=== PATIENT | male | born 1960 | race Caucasian/White ===

== ENCOUNTER 2016-05-12 18:28 | Emergency (ER) | payer BC ==
[2016-05-12 18:48] LABS: BASO % 0.5 % (0.0-1.0); EOS # 0.2 K/mm3 (0.0-0.50); EOS % 2.4 % (0.0-3.0); LARGE UNSTAINED CELL # 0.2 K/mm3 (0.0-0.4); LARGE UNSTAINED CELL % 2.1 % (0.0-4.0); LYMPH # 3.6 K/mm3 (1.5-4.5); LYMPH % 35.4 % (24.0-44.0); MEAN CORPUSCULAR HEMOGLOBIN 27.9 pg (27.0-33.0); MEAN CORPUSCULAR HGB CONC 32.3 g/dl (32.0-36.5); MEAN CORPUSCULAR VOLUME 86.3 fl (80.0-96.0); MONO # 0.6 K/mm3 (0.0-0.8); NEUTROPHILS # 5.2 K/mm3 (1.8-7.7); NEUTROPHILS % 53.6 % (36.0-66.0); PLATELET COUNT, AUTOMATED 250 k/mm3 (150-450); RED CELL DISTRIBUTION WIDTH 12.1 % (11.5-14.5); WHITE BLOOD COUNT 9.7 K/mm3 (4.0-10.0)
[2016-05-12] MEDS ORDERED: ASPIRIN 81 MG CHEW TABLET As Ordered ONE (18:57)
[2016-05-12] MEDS ORDERED: GI COCKTAIL 50ML BTL(HYOSCYAMINE/MAALOX/LIDOCAINE VISCOUS)(1:3:1) As Ordered ONE (18:57)
--- NOTE | 2016-05-12 19:04 | REP ---
Clinical: Chest pain . Comparison: 08/22/2003 . Findings: The mediastinum and cardiac silhouette are stable and within normal limits for portable technique. The lung contreras are clear without acute consolidation, effusion, or pneumothorax. Skeletal structures are intact. Impression: Normal portable chest x-ray Signed by Antoine Vasques MD 05/12/2016 06:56 P
[2016-05-12 19:13] LABS: ALBUMIN 4.2 GM/DL (3.2-5.2); ALBUMIN/GLOBULIN RATIO 1.27 (1.00-1.93); ALKALINE PHOSPHATASE 100 U/L (45-117); ALT/SGPT 33 U/L (12-78); ANION GAP 8 MEQ/L (8-16); AST/SGOT 18 U/L (15-37); BILIRUBIN,DIRECT 0.1 MG/DL (0.0-0.2); BILIRUBIN,TOTAL 0.4 MG/DL (0.2-1.0); BLOOD UREA NITROGEN 18 MG/DL (7-18); CALCIUM LEVEL 9.4 MG/DL (8.5-10.1); CARBON DIOXIDE LEVEL 31 MEQ/L (21-32); CHLORIDE LEVEL 103 MEQ/L (98-107); CREATININE FOR GFR 1.28 MG/DL (0.70-1.30); GLOMERULAR FILTRATION RATE > 60.0 (>56); GLUCOSE, FASTING 110 MG/DL (70-105); POTASSIUM SERUM 3.8 MEQ/L (3.5-5.1); SODIUM LEVEL 142 MEQ/L (136-145); TOTAL PROTEIN 7.5 GM/DL (6.4-8.2)
[2016-05-12] MEDS ORDERED: FAMOTIDINE/NS 20 MG/50 ML BAG (S0028) As Ordered ONE (20:02)
[2016-05-12] MEDS ORDERED: MORPHINE 2 MG/ML 1ML SYRINGE As Ordered ONE (20:02)
[2016-05-12] MEDS ORDERED: KETOROLAC 30 MG/ML VIAL (J1885) As Ordered ONE (20:41)
--- NOTE | 2016-05-13 01:59 | EDDOCDS ---
Physician Documentation [facility] Name: Hussein Garcia Age: 55 yrs Sex: Male : 1960 Arrival Date: 05/12/2016 Time: 18:28 Bed D1 Private MD: Disposition: 05/12/16 23:18 Discharged to Home/Self Care. Impression: Chest pain, unspecified, Abdominal and pelvic pain. - Condition is Stable. - Discharge Instructions: Abdominal Pain, Adult, Nonspecific Chest Pain. - Prescriptions for Naprosyn 500 mg Oral Tablet - take 1 tablet by ORAL route 2 times per day take with food; 30 tablet. Aspirin 81 mg - take 1 tablet by ORAL route once daily; 90 tablet. Zofran 4 mg Oral Tablet - take 1 tablet by ORAL route 4 times per day As needed; 10 tablet. - Medication Reconciliation, Local Pharmacy Hours form. - Follow up: Phillip Wilkerson MD; When: Call to arrange an appointment; Reason: Further diagnostic work-up, Continuance of care. Follow up: Hakan Neff; When: Call to arrange an appointment; Reason: Further diagnostic work-up, Continuance of care. - Problem is an acute exacerbation. - Symptoms have improved. Historical: - Allergies: no known allergies; - Home Meds: 1. simvastatin 20 mg Oral tab 1 tab once daily 2. unknown for reflux - PMHx: Hypercholesterolemia; GERD; - PSHx: Hernia repair; H pylori; - Social history: Smoking status: Patient states was never smoker of tobacco. No barriers to communication noted, The patient speaks fluent Swedish, Speaks appropriately for age. - Family history: Not pertinent. - : The pt / caregiver states he / she is not on anticoagulants. Home medication list is obtained from the patient. - Exposure Risk Screening:: None identified. Vital Signs: 05/12 18:30 BP 164 / 76; Pulse 64; Resp 18; Temp 96.7(O); Pulse Ox 100% on R/A; Weight 115.67 kg / lr2 255.01 lbs (R); Height 5 ft. 10 in. (177.80 cm) (R); Pain 6/10; 18:45 BP 141 / 76 (auto/); kmg1 18:45 Pulse 60 MON; Pulse Ox 97% ; kmg1 19:00 Pulse 60 MON; Pulse Ox 93% ; kmg1 19:15 Pulse 62 MON; Pulse Ox 94% ; kmg1 19:30 Pulse 64 MON; Pulse Ox 90% ; kmg1 19:45 Pulse 56 MON; Pulse Ox 93% ; kmg1 20:40 Pulse 52 MON; Pulse Ox 95% ; cz 20:41 BP 125 / 70 (auto/); cz 20:55 Pulse 48 MON; Pulse Ox 95% ; cz 20:56 BP 114 / 63 (auto/); cz 21:10 Pulse 48 MON; Pulse Ox 93% ; cz 21:11 BP 111 / 63 (auto/); cz 21:25 Pulse 50 MON; Pulse Ox 93% ; cz 21:26 BP 114 / 67 (auto/); cz 21:40 Pulse 54 MON; Pulse Ox 92% ; cz 21:41 BP 115 / 67 (auto/); cz 21:55 Pulse 54 MON; Pulse Ox 93% ; cz 21:56 BP 129 / 67 (auto/); cz 22:10 Pulse 50 MON; Pulse Ox 95% ; cz 22:11 BP 120 / 65 (auto/); cz 22:25 Pulse 48 MON; Pulse Ox 94% ; cz 22:26 BP 125 / 65 (auto/); cz 22:40 Pulse 50 MON; Pulse Ox 93% ; cz 22:41 BP 130 / 68 (auto/); cz 22:55 Pulse 50 MON; Pulse Ox 93% ; cz 22:56 BP 116 / 68 (auto/); cz 23:10 Pulse 48 MON; Pulse Ox 91% ; cz 23:11 BP 117 / 73 (auto/); cz 23:31 BP 113 / 73; Pulse 51; Resp 16; Temp 96(O); cz 18:30 Body Mass Index 36.59 (115.67 kg, 177.80 cm) lr2 MDM: 18:37 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 br1 18:37 IV Saline Lock ordered. br1 18:37 Rhythm Strip to chart ordered. br1 18:37 Undress patient appropriately for examination ordered. br1 18:38 Basic Metabolic Profile Ordered. EDMS 18:38 CBC with Diff Ordered. EDMS 18:38 Cardiac Injury Profile Ordered. EDMS 18:38 Troponin Ordered. EDMS 18:38 ECG WITH READING ER PHYS+CARDIAG ordered. EDMS 18:38 ECG WITH READING ER PHYS+CARDIAG ordered. EDMS 18:46 GI Cocktail - (Alum-Mag Hydroxide-Simeth 30 ml, Lidocaine 10 ml, Hyoscyamine 10 ml) PO ke once; Pre-mixed 50mL unit dose ordered. 18:46 Aspirin 324 mg PO once ordered. ke 18:47 Chest, 1 View Ordered. EDMS 18:49 LIPASE Ordered. EDMS 18:49 LIVER PROFILE Ordered. EDMS 19:18 Basic Metabolic Profile Reviewed. ke 19:18 CBC with Diff Reviewed. ke 19:18 Cardiac Injury Profile Reviewed. ke 19:18 Troponin Reviewed. ke 19:18 LIPASE Reviewed. ke 19:18 LIVER PROFILE Reviewed. ke 19:19 Nitrostat 0.4 mg Sublingual once ordered. ke 19:44 Repeat EKG (put time details section) ordered. ke 19:44 Redraw CIP &Troponin (put time in details section) ordered. ke 19:50 Repeat EKG (put time details section) complete. tmm1 19:50 Redraw CIP &Troponin (put time in details section) complete. tmm1 19:50 CARDIAC MARKER PANEL Ordered. EDMS 19:51 ECG WITH READING ER PHYS ordered. EDMS 19:59 Famotidine 20 mg IVPB once over 30 mins; dilute in 50mL of NS ordered. ke 19:59 morphine 2 mg IVP once ordered. ke 20:03 Financial registration complete. zo 20:07 [facility] Payment Agreement was scanned into [employer] and attached to record. zo 20:30 ketorolac 30 mg IVP once ordered. ke 23:12 CARDIAC MARKER PANEL Reviewed. ke 23:12 Chest, 1 View Reviewed. ke Administered Medications: 19:01 Drug: Aspirin 324 mg [aspirin 81 mg chewable tablet (4 tabs)] Route: PO; kc3 19:02 Drug: GI Cocktail - (Alum-Mag Hydroxide-Simeth Suspension 225 mg-200 mg-25 mg/5 mL 30 kc3 ml, Lidocaine Liquid 2 % 10 ml, Hyoscyamine Liquid 10 ml) Route: PO; 19:25 Drug: Nitrostat 0.4 mg [Nitrostat 0.4 mg sublingual tablet (1 tabs)] Route: Sublingual; kmg1 19:52 Follow up: Response: No significant change. kmg1 20:13 Drug: Famotidine 20 mg [famotidine 10 mg/mL intravenous solution] Route: IVPB; Infused kmg1 Over: 30 mins; Site: left antecubital; 20:45 Follow up: IV Status: Completed infusion; IV Intake: 50ml kmg1 20:14 Not Given (Patient Refused): morphine 2 mg IVP once kmg1 20:47 Drug: ketorolac 30 mg [ketorolac 30 mg/mL (1 mL) injection solution (1 mL)] Route: IVP; kmg1 Site: left antecubital; Signatures: Dispatcher [employer] EDBree Faust, RN RN kmg1 Lucas Gunter, RISK AND INSURANCE CONSULTANT RISK AND INSURANCE CONSULTANT Chris Bautista RN RN mlb1 Jef Noel Brian, MD MD br1 Cmamy Rosario, ELECTRICAL ENGINEERING TECHNICIAN ELECTRICAL ENGINEERING TECHNICIAN tmm1 Leatha Mohamud RN kc3 The chart was reviewed and I authenticate all verbal orders and agree with the evaluation and treatment provided.Corrections: (The following items were deleted from the chart) 18:49 18:47 LIPASE+LAB ordered. EDMS EDMS 18:49 18:47 LIVER PROFILE+LAB ordered. EDMS EDMS Attachments: 20:07 [facility] Payment Agreement zo MTDD
--- NOTE | 2016-05-13 01:59 | EDDOCDS ---
Nurse's Notes [facility] Name: Hussein Garcia Age: 55 yrs Sex: Male : 1960 Arrival Date: 05/12/2016 Time: 18:28 Bed D1 Private MD: Diagnosis: Chest pain, unspecified;Abdominal and pelvic pain Presentation: 05/12 18:34 Presenting complaint: Patient states: Left anterior chest pain began at noon today also mlb1 reports diffuse abdominal denies N/V. Aspirin was not taken prior to arrival. Adult Sepsis Screening: The patient does not have new or worsening altered mentation. Patient's respiratory rate is less than 22. Systolic blood pressure is greater than 100. Patient has a qSOFA score of 0- Negative Sepsis Screen. Suicide/Homicide risk assessment- the patient denies having any suicidal and/or homicidal ideations and does not present with any other emotional, behavioral or mental health complaints. Status: Patient is not a coordinator cardiopulmonary services or dependent. Transition of care: patient was not received from another setting of care. 18:34 Acuity: MARIBELL Level 2 mlb1 18:34 Method Of Arrival: Walkin/Carried/Asstd mlb1 Triage Assessment: 18:40 General: Appears in no apparent distress, Behavior is appropriate for age, cooperative. mlb1 Pain: Location: anterior aspect of left upper chest and abdomen Pain currently is 7 out of 10 on a pain scale. HIV screening NA for this visit Offered previously. Historical: - Allergies: no known allergies; - Home Meds: 1. simvastatin 20 mg Oral tab 1 tab once daily 2. unknown for reflux - PMHx: Hypercholesterolemia; GERD; - PSHx: Hernia repair; H pylori; - Social history: Smoking status: Patient states was never smoker of tobacco. No barriers to communication noted, The patient speaks fluent Welsh, Speaks appropriately for age. - Family history: Not pertinent. - : The pt / caregiver states he / she is not on anticoagulants. Home medication list is obtained from the patient. - Exposure Risk Screening:: None identified. Screenin:45 Screening information is obtained from the patient. Fall risk: No risks identified. kmg1 Assistance ADL's: requires no assistance with activities of daily living. Abuse/DV Screen: The patient / caregiver reports he/she is: not in a situation that causes fear, pain or injury. Nutritional screening: No deficits noted. Advance Directives: There is no active DNR order. home support is adequate. Assessment: 19:15 General: Appears in no apparent distress, uncomfortable, Behavior is appropriate for kmg1 age, cooperative, pleasant. Pain: Location: epigastric area, right upper quadrant and left upper quadrant Pain currently is 6 out of 10 on a pain scale. Quality of pain is described as pressure, sharp. Cardiovascular: Rhythm is sinus bradycardia No ectopy. Chest pain quality is pressure, is located in left anterior. Respiratory: Airway is patent Respiratory effort is even, unlabored, Respiratory pattern is regular, symmetrical. GI: Abdomen is non- distended Reports gaseousness, upper abdominal pain. 19:45 Reassessment: Patient states symptoms have not improved. Provider made aware of kmg1 persistent discomfort. 20:45 General: Appears in no apparent distress, comfortable, Behavior is appropriate for age, kmg1 cooperative, quiet. Pain: Location: left upper quadrant and right upper quadrant and epigastric area Pain currently is 4 out of 10 on a pain scale. Quality of pain is described as pressure. Cardiovascular: Rhythm is sinus bradycardia No ectopy. Respiratory: Airway is patent Respiratory effort is even, unlabored, Respiratory pattern is regular, symmetrical. 21:45 Reassessment: Patient appears in no apparent distress at this time. Patient states kmg1 symptoms have not improved. 22:45 General: Appears in no apparent distress, comfortable, Behavior is appropriate for age, kmg1 cooperative, pleasant, quiet. Respiratory: Airway is patent Respiratory effort is even, unlabored, Respiratory pattern is regular, symmetrical. Vital Signs: 18:30 BP 164 / 76; Pulse 64; Resp 18; Temp 96.7(O); Pulse Ox 100% on R/A; Weight 115.67 kg lr2 (R); Height 5 ft. 10 in. (177.80 cm) (R); Pain 6/10; 18:45 BP 141 / 76 (auto/); kmg1 18:45 Pulse 60 MON; Pulse Ox 97% ; kmg1 19:00 Pulse 60 MON; Pulse Ox 93% ; kmg1 19:15 Pulse 62 MON; Pulse Ox 94% ; kmg1 19:30 Pulse 64 MON; Pulse Ox 90% ; kmg1 19:45 Pulse 56 MON; Pulse Ox 93% ; kmg1 20:40 Pulse 52 MON; Pulse Ox 95% ; cz 20:41 BP 125 / 70 (auto/); cz 20:55 Pulse 48 MON; Pulse Ox 95% ; cz 20:56 BP 114 / 63 (auto/); cz 21:10 Pulse 48 MON; Pulse Ox 93% ; cz 21:11 BP 111 / 63 (auto/); cz 21:25 Pulse 50 MON; Pulse Ox 93% ; cz 21:26 BP 114 / 67 (auto/); cz 21:40 Pulse 54 MON; Pulse Ox 92% ; cz 21:41 BP 115 / 67 (auto/); cz 21:55 Pulse 54 MON; Pulse Ox 93% ; cz 21:56 BP 129 / 67 (auto/); cz 22:10 Pulse 50 MON; Pulse Ox 95% ; cz 22:11 BP 120 / 65 (auto/); cz 22:25 Pulse 48 MON; Pulse Ox 94% ; cz 22:26 BP 125 / 65 (auto/); cz 22:40 Pulse 50 MON; Pulse Ox 93% ; cz 22:41 BP 130 / 68 (auto/); cz 22:55 Pulse 50 MON; Pulse Ox 93% ; cz 22:56 BP 116 / 68 (auto/); cz 23:10 Pulse 48 MON; Pulse Ox 91% ; cz 23:11 BP 117 / 73 (auto/); cz 23:31 BP 113 / 73; Pulse 51; Resp 16; Temp 96(O); cz 18:30 Body Mass Index 36.59 (115.67 kg, 177.80 cm) lr2 Vitals: 18:30 Log In Time: May 12, 2016 at 18:28. lr2 18:33 RN notified that patient meets Red Flag criteria. lr2 ED Course: 18:30 Patient visited by Ramya Leon. lr2 18:30 Patient moved to Waiting lr2 18:32 Patient moved to 5 jrd 18:32 Patient moved to Pre RCE lr2 18:33 Aidee Gottlieb,RN is Primary Nurse. aa3 18:33 Patient moved to 5 lr2 18:34 Patient visited by Chris Lynn, RN. mlb1 18:36 Triage Initiated mlb1 18:40 Patient visited by Chris Lynn, RN. mlb1 18:42 Basic Metabolic Profile Sent. aa3 18:42 CBC with Diff Sent. aa3 18:42 Cardiac Injury Profile Sent. aa3 18:42 Troponin Sent. aa3 18:43 EKG done. (by ED staff). Reviewed by Lucas RAMSEY. jmv 18:44 [facility] ke 18:44 Patient visited by Lucas Gunter FNP. ke 18:44 Patient visited by Lucas Gunter FNP. ke 18:45 Inserted peripheral IV: 20gauge IV in left antecubital area Patient tolerated the aa3 procedure well. Labs drawn. (by ED staff). Sent per order to lab. 18:46 Patient visited by Aidee Gottlieb RN. aa3 18:48 Patient visited by Melvin Montenegro PCA. jmv 18:48 Pt greeted and oriented to ED. Patient advised of names of staff involved in care, [facility] location of call [place], wait times and NPO status. Accompanied by Significant Other, Patient has correct armband on for positive identification. Placed in gown. Bed in low position. Call light in reach. Side rails up X2. night monitor on. Pulse ox on. NIBP on. 19:12 Patient visited by Lucas Gunter FNP. ke 19:21 Chest, 1 View Returned. EDMS 19:45 The patient / caregiver is instructed regarding the plan of care and ED course. kmg1 19:45 No procedures done that require assistance. kmg1 19:58 Patient visited by Bree Correa RN. kmg1 20:07 [facility] Payment Agreement was scanned into [employer] and attached to record. zo 20:29 Patient visited by Lucas Gunter FNP. ke 21:02 Patient visited by Lucas Gunter FNP. ke 21:40 Patient visited by Lucas Gunter FNP. ke 21:59 Patient visited by Chey Sena PCA. shasta 21:59 EKG done. (by ED staff). Reviewed by Lucas RAMSEY. shasta 22:22 Patient visited by Lucas Gunter FNP. ke 22:47 Patient visited by Lucas Gunter FNP. ke 23:17 Phillip Wilkerson MD is Referral Physician. ke 23:17 Hakan Neff is Referral Physician. ke 23:32 Patient moved to D1 cz Administered Medications: 19:01 Drug: Aspirin 324 mg [aspirin 81 mg chewable tablet (4 tabs)] Route: PO; kc3 19:02 Drug: GI Cocktail - (Alum-Mag Hydroxide-Simeth Suspension 225 mg-200 mg-25 mg/5 mL 30 kc3 ml, Lidocaine Liquid 2 % 10 ml, Hyoscyamine Liquid 10 ml) Route: PO; 19:25 Drug: Nitrostat 0.4 mg [Nitrostat 0.4 mg sublingual tablet (1 tabs)] Route: Sublingual; kmg1 19:52 Follow up: Response: No significant change. kmg1 20:13 Drug: Famotidine 20 mg [famotidine 10 mg/mL intravenous solution] Route: IVPB; Infused kmg1 Over: 30 mins; Site: left antecubital; 20:45 Follow up: IV Status: Completed infusion; IV Intake: 50ml kmg1 20:14 Not Given (Patient Refused): morphine 2 mg IVP once kmg1 20:47 Drug: ketorolac 30 mg [ketorolac 30 mg/mL (1 mL) injection solution (1 mL)] Route: IVP; kmg1 Site: left antecubital; Intake: 20:45 IV: 50.00ml; Total: 50.00ml. kmg1 Order Results: Lab Order: Basic Metabolic Profile; SPEC'M 05/12/16 18:41 Test: GLUCOSE, FASTING; Value: 110; Range: 70-105; Abnormal: Above high normal; Units: MG/DL; Status: F Test: BLOOD UREA NITROGEN; Value: 18; Range: 7-18; Units: MG/DL; Status: F Test: CREATININE FOR GFR; Value: 1.28; Range: 0.70-1.30; Units: MG/DL; Status: F Test: GLOMERULAR FILTRATION RATE; Value: > 60.0; Range: >56; Status: F Test: SODIUM LEVEL; Value: 142; Range: 136-145; Units: MEQ/L; Status: F Test: POTASSIUM SERUM; Value: 3.8; Range: 3.5-5.1; Units: MEQ/L; Status: F Test: CHLORIDE LEVEL; Value: 103; Range: 98-107; Units: MEQ/L; Status: F Test: CARBON DIOXIDE LEVEL; Value: 31; Range: 21-32; Units: MEQ/L; Status: F Test: ANION GAP; Value: 8; Range: 8-16; Units: MEQ/L; Status: F Test: CALCIUM LEVEL; Value: 9.4; Range: 8.5-10.1; Units: MG/DL; Status: F Test Note: ; Units are mL/min/1.73 m2 Chronic Kidney Disease Staging per NKF: Stage I & II GFR >=60 Normal to Mildly Decreased Stage III GFR 30-59 Moderately Decreased Stage IV GFR 15-29 Severely Decreased Stage V GFR <15 Very Little GFR Left ESRD GFR <15 on SURGICAL NURSE Lab Order: CBC with Diff; SPEC'M 05/12/16 18:41 Test: WHITE BLOOD COUNT; Value: 9.7; Range: 4.0-10.0; Units: K/mm3; Status: F Test: RED BLOOD COUNT; Value: 5.53; Range: 4.30-6.10; Units: M/mm3; Status: F Test: HEMOGLOBIN; Value: 15.4; Range: 14.0-18.0; Units: g/dl; Status: F Test: HEMATOCRIT; Value: 47.7; Range: 42.0-52.0; Units: %; Status: F Test: MEAN CORPUSCULAR VOLUME; Value: 86.3; Range: 80.0-96.0; Units: fl; Status: F Test: MEAN CORPUSCULAR HEMOGLOBIN; Value: 27.9; Range: 27.0-33.0; Units: pg; Status: F Test: MEAN CORPUSCULAR HGB CONC; Value: 32.3; Range: 32.0-36.5; Units: g/dl; Status: F Test: RED CELL DISTRIBUTION WIDTH; Value: 12.1; Range: 11.5-14.5; Units: %; Status: F Test: PLATELET COUNT, AUTOMATED; Value: 250; Range: 150-450; Units: k/mm3; Status: F Test: NEUTROPHILS %; Value: 53.6; Range: 36.0-66.0; Units: %; Status: F Test: LYMPH %; Value: 35.4; Range: 24.0-44.0; Units: %; Status: F Test: MONO %; Value: 6.0; Range: 0.0-5.0; Abnormal: Above high normal; Units: %; Status: F Test: EOS %; Value: 2.4; Range: 0.0-3.0; Units: %; Status: F Test: BASO %; Value: 0.5; Range: 0.0-1.0; Units: %; Status: F Test: LARGE UNSTAINED CELL %; Value: 2.1; Range: 0.0-4.0; Units: %; Status: F Test: NEUTROPHILS #; Value: 5.2; Range: 1.8-7.7; Units: K/mm3; Status: F Test: LYMPH #; Value: 3.6; Range: 1.5-4.5; Units: K/mm3; Status: F Test: MONO #; Value: 0.6; Range: 0.0-0.8; Units: K/mm3; Status: F Test: EOS #; Value: 0.2; Range: 0.0-0.50; Units: K/mm3; Status: F Test: BASO #; Value: 0.0; Range: 0.0-0.2; Units: K/mm3; Status: F Test: LARGE UNSTAINED CELL #; Value: 0.2; Range: 0.0-0.4; Units: K/mm3; Status: F Lab Order: Cardiac Injury Profile; SPEC'M 05/12/16 18:41 Test: CPK CREATINE PHOSPHOKINASE; Value: 229; Range: 39-308; Units: U/L; Status: F Test: CK-MB VALUE MASS; Value: 1.0; Range: 0.0-3.6; Units: NG/ML; Status: F Test: MB/CK RELATIVE INDEX; Value: 0.43; Range: < OR =4; Status: F Test Note: ; DIAGNOSIS CRITERIA MMB ng/ml Relative Index (RI) NON-AMI < or = 5 N/A HAIDER ZONE > 5 < or = 4 AMI > 5 > 4 Lab Order: Troponin; SPEC'M 05/12/16 18:41 Test: TROPONIN I; Value: < 0.02; Range: < 0.10; Units: NG/ML; Status: F Test Note: ; Troponin I Reference Interval for [place] LOCI: 99th Percentile= 0.00-0.045 ng/ml Risk Stratification: <= 0.10 ng/ml Decreased Risk for Adverse Clinical Events. 0.10-1.50 ng/ml Increased Risk for Adverse Clinical Events. Evaluation of additional criterion and/or repeat testing in 2-6 hours is suggested to rule out myocardial damage. >= 1.50 ng/ml Indicative of Myocardial Injury. Lab Order: LIPASE; SPEC'M 05/12/16 18:41 Test: LIPASE; Value: 211; Range: 73-393; Units: U/L; Status: F Lab Order: LIVER PROFILE; SPEC'M 05/12/16 18:41 Test: AST/SGOT; Value: 18; Range: 15-37; Units: U/L; Status: F Test: ALT/SGPT; Value: 33; Range: 12-78; Units: U/L; Status: F Test: ALKALINE PHOSPHATASE; Value: 100; Range: 45-117; Units: U/L; Status: F Test: BILIRUBIN,TOTAL; Value: 0.4; Range: 0.2-1.0; Units: MG/DL; Status: F Test: BILIRUBIN,DIRECT; Value: 0.1; Range: 0.0-0.2; Units: MG/DL; Status: F Test: TOTAL PROTEIN; Value: 7.5; Range: 6.4-8.2; Units: GM/DL; Status: F Test: ALBUMIN; Value: 4.2; Range: 3.2-5.2; Units: GM/DL; Status: F Test: ALBUMIN/GLOBULIN RATIO; Value: 1.27; Range: 1.00-1.93; Status: F Lab Order: CARDIAC MARKER PANEL; SPEC'M 05/12/16 22:07 Test: CPK CREATINE PHOSPHOKINASE; Value: 189; Range: 39-308; Units: U/L; Status: F Test: CK-MB VALUE MASS; Value: 1.0; Range: 0.0-3.6; Units: NG/ML; Status: F Test: MB/CK RELATIVE INDEX; Value: 0.52; Range: < OR =4; Status: F Test: TROPONIN I; Value: < 0.02; Range: < 0.10; Units: NG/ML; Status: F Test Note: ; DIAGNOSIS CRITERIA MMB ng/ml Relative Index (RI) NON-AMI < or = 5 N/A HAIDER ZONE > 5 < or = 4 AMI > 5 > 4 Radiology Order: Chest, 1 View Test: Chest, 1 View REASON FOR EXAMINATION: Chest Pain; Clinical: Chest pain .; ; Comparison: 08/22/2003 .; ; Findings:; The mediastinum and cardiac silhouette are stable and within normal limits for; portable technique. The lung contreras are clear without acute consolidation,; effusion, or pneumothorax. Skeletal structures are intact.; ; Impression:; Normal portable chest x-ray; ; ; Signed by; Antoine Vasques MD 05/12/2016 06:56 P; Outcome: 23:18 Discharge ordered by Provider. 23:40 Discharge Assessment: Patient awake, alert and oriented x 3. No cognitive and/or cz functional deficits noted. Patient verbalized understanding of disposition instructions. patient administered narcotics - no. The following High Risk Discharge criteria are identified: None. Discharged to home ambulatory, with significant other. Condition: stable. Discharge instructions given to patient, Instructed on discharge instructions, follow up and referral plans. medication usage, Demonstrated understanding of instructions, medications, Pt was receptive of discharge instructions/ teaching. Prescriptions given X 2. No special radiology studies were completed. Property :Personal belongings accompany Pt. 05/13 01:59 Patient left the ED. [facility] Signatures: Dispatcher [employer] EDRI Bree Correa RN RN kmg1 Olegario Rowell RN RN cz Elsner, Karl, MORGUE TECHNICIAN MORGUE TECHNICIAN Chris Bautista RN RN mlb1 Jef Noel Hannah, RN RN hs1 Chey Sena, SAILBOAT CAPTAIN SAILBOAT CAPTAIN Aidee Magallon RN RN [email or web address] Enrique Hanks, SAILBOAT CAPTAIN SAILBOAT CAPTAIN Leatha Grimes RN RN [email or web address] Melvin Montenegro, SAILBOAT CAPTAIN SAILBOAT CAPTAIN Ramya Hernandez lr2 Corrections: (The following items were deleted from the chart) 05/12 18:49 18:49 LIVER PROFILE+LAB sent. [facility] EDRI 18:49 18:49 LIPASE+LAB sent. [facility] EDMS MTDD
--- NOTE | 2016-05-13 07:51 | ECGEPIP ---
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
--- NOTE | 2016-05-13 07:52 | ECGEPIP ---
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
--- NOTE | 2016-05-15 02:59 | EDDOCDS ---
Physician Documentation [facility] Name: Hussein Garcia Age: 55 yrs Sex: Male : 1960 Arrival Date: 05/12/2016 Time: 18:28 Bed D1 Private MD: Disposition: 05/12/16 23:18 Discharged to Home/Self Care. Impression: Chest pain, unspecified, Abdominal and pelvic pain. - Condition is Stable. - Discharge Instructions: Abdominal Pain, Adult, Nonspecific Chest Pain. - Prescriptions for Naprosyn 500 mg Oral Tablet - take 1 tablet by ORAL route 2 times per day take with food; 30 tablet. Aspirin 81 mg - take 1 tablet by ORAL route once daily; 90 tablet. Zofran 4 mg Oral Tablet - take 1 tablet by ORAL route 4 times per day As needed; 10 tablet. - Medication Reconciliation, Local Pharmacy Hours form. - Follow up: Phillip Wilkerson MD; When: Call to arrange an appointment; Reason: Further diagnostic work-up, Continuance of care. Follow up: Hakan Neff; When: Call to arrange an appointment; Reason: Further diagnostic work-up, Continuance of care. - Problem is an acute exacerbation. - Symptoms have improved. Historical: - Allergies: no known allergies; - Home Meds: 1. simvastatin 20 mg Oral tab 1 tab once daily 2. unknown for reflux - PMHx: Hypercholesterolemia; GERD; - PSHx: Hernia repair; H pylori; - Social history: Smoking status: Patient states was never smoker of tobacco. No barriers to communication noted, The patient speaks fluent Greenlandic, Speaks appropriately for age. - Family history: Not pertinent. - : The pt / caregiver states he / she is not on anticoagulants. Home medication list is obtained from the patient. - Exposure Risk Screening:: None identified. Vital Signs: 05/12 18:30 BP 164 / 76; Pulse 64; Resp 18; Temp 96.7(O); Pulse Ox 100% on R/A; Weight 115.67 kg / lr2 255.01 lbs (R); Height 5 ft. 10 in. (177.80 cm) (R); Pain 6/10; 18:45 BP 141 / 76 (auto/); kmg1 18:45 Pulse 60 MON; Pulse Ox 97% ; kmg1 19:00 Pulse 60 MON; Pulse Ox 93% ; kmg1 19:15 Pulse 62 MON; Pulse Ox 94% ; kmg1 19:30 Pulse 64 MON; Pulse Ox 90% ; kmg1 19:45 Pulse 56 MON; Pulse Ox 93% ; kmg1 20:40 Pulse 52 MON; Pulse Ox 95% ; cz 20:41 BP 125 / 70 (auto/); cz 20:55 Pulse 48 MON; Pulse Ox 95% ; cz 20:56 BP 114 / 63 (auto/); cz 21:10 Pulse 48 MON; Pulse Ox 93% ; cz 21:11 BP 111 / 63 (auto/); cz 21:25 Pulse 50 MON; Pulse Ox 93% ; cz 21:26 BP 114 / 67 (auto/); cz 21:40 Pulse 54 MON; Pulse Ox 92% ; cz 21:41 BP 115 / 67 (auto/); cz 21:55 Pulse 54 MON; Pulse Ox 93% ; cz 21:56 BP 129 / 67 (auto/); cz 22:10 Pulse 50 MON; Pulse Ox 95% ; cz 22:11 BP 120 / 65 (auto/); cz 22:25 Pulse 48 MON; Pulse Ox 94% ; cz 22:26 BP 125 / 65 (auto/); cz 22:40 Pulse 50 MON; Pulse Ox 93% ; cz 22:41 BP 130 / 68 (auto/); cz 22:55 Pulse 50 MON; Pulse Ox 93% ; cz 22:56 BP 116 / 68 (auto/); cz 23:10 Pulse 48 MON; Pulse Ox 91% ; cz 23:11 BP 117 / 73 (auto/); cz 23:31 BP 113 / 73; Pulse 51; Resp 16; Temp 96(O); cz 18:30 Body Mass Index 36.59 (115.67 kg, 177.80 cm) lr2 MDM: 18:37 Rock Star/Pulse Ox/q 30 min VS ordered. br1 18:37 IV Saline Lock ordered. br1 18:37 Rhythm Strip to chart ordered. br1 18:37 Undress patient appropriately for examination ordered. br1 18:38 Basic Metabolic Profile Ordered. EDMS 18:38 CBC with Diff Ordered. EDMS 18:38 Cardiac Injury Profile Ordered. EDMS 18:38 Troponin Ordered. EDMS 18:38 ECG WITH READING ER PHYS+CARDIAG ordered. EDMS 18:38 ECG WITH READING ER PHYS+CARDIAG ordered. EDMS 18:46 GI Cocktail - (Alum-Mag Hydroxide-Simeth 30 ml, Lidocaine 10 ml, Hyoscyamine 10 ml) PO ke once; Pre-mixed 50mL unit dose ordered. 18:46 Aspirin 324 mg PO once ordered. ke 18:47 Chest, 1 View Ordered. EDMS 18:49 LIPASE Ordered. EDMS 18:49 LIVER PROFILE Ordered. EDMS 19:18 Basic Metabolic Profile Reviewed. ke 19:18 CBC with Diff Reviewed. ke 19:18 Cardiac Injury Profile Reviewed. ke 19:18 Troponin Reviewed. ke 19:18 LIPASE Reviewed. ke 19:18 LIVER PROFILE Reviewed. ke 19:19 Nitrostat 0.4 mg Sublingual once ordered. ke 19:44 Repeat EKG (put time details section) ordered. ke 19:44 Redraw CIP &Troponin (put time in details section) ordered. ke 19:50 Repeat EKG (put time details section) complete. tmm1 19:50 Redraw CIP &Troponin (put time in details section) complete. tmm1 19:50 CARDIAC MARKER PANEL Ordered. EDMS 19:51 ECG WITH READING ER PHYS ordered. EDMS 19:59 Famotidine 20 mg IVPB once over 30 mins; dilute in 50mL of NS ordered. ke 19:59 morphine 2 mg IVP once ordered. ke 20:03 Financial registration complete. zo 20:07 [facility] Payment Agreement was scanned into [employer] and attached to record. zo 20:30 ketorolac 30 mg IVP once ordered. ke 23:12 CARDIAC MARKER PANEL Reviewed. ke 23:12 Chest, 1 View Reviewed. ke 05/13 09:49 T-Sheet-- Draft Copy was scanned into [employer] and attached to record. gb 14:41 ECG/EKG was scanned into [employer] and attached to record. gb Administered Medications: 05/12 19:01 Drug: Aspirin 324 mg [aspirin 81 mg chewable tablet (4 tabs)] Route: PO; kc3 19:02 Drug: GI Cocktail - (Alum-Mag Hydroxide-Simeth Suspension 225 mg-200 mg-25 mg/5 mL 30 kc3 ml, Lidocaine Liquid 2 % 10 ml, Hyoscyamine Liquid 10 ml) Route: PO; 19:25 Drug: Nitrostat 0.4 mg [Nitrostat 0.4 mg sublingual tablet (1 tabs)] Route: Sublingual; kmg1 19:52 Follow up: Response: No significant change. kmg1 20:13 Drug: Famotidine 20 mg [famotidine 10 mg/mL intravenous solution] Route: IVPB; Infused kmg1 Over: 30 mins; Site: left antecubital; 20:45 Follow up: IV Status: Completed infusion; IV Intake: 50ml kmg1 20:14 Not Given (Patient Refused): morphine 2 mg IVP once kmg1 20:47 Drug: ketorolac 30 mg [ketorolac 30 mg/mL (1 mL) injection solution (1 mL)] Route: IVP; kmg1 Site: left antecubital; Signatures: Dispatcher [employer] EDMS Bree Correa, RN RN kmg1 Verónica Worthy, Reg Reg Lucas Ramirez, ENGINEERING DESIGNER ENGINEERING DESIGNER Chris Bautista RN RN mlb1 Jef Noel Brian, MD MD br1 McLear, Cammy, GAS ENGINE PERFORMANCE ENGINEER GAS ENGINE PERFORMANCE ENGINEER tmm1 Leatha Mohamud RN kc3 The chart was reviewed and I authenticate all verbal orders and agree with the evaluation and treatment provided.Corrections: (The following items were deleted from the chart) 18:49 18:47 LIPASE+LAB ordered. EDMS EDMS 18:49 18:47 LIVER PROFILE+LAB ordered. EDMS EDMS Attachments: 20:07 [facility] Payment Agreement zo 05/13 09:49 T-Sheet-- Draft Copy gb 14:41 ECG/EKG gb Chart Complete MTDD
--- NOTE | 2016-05-15 02:59 | EDDOCDS ---
Nurse's Notes [facility] Name: Hussein Garcia Age: 55 yrs Sex: Male : 1960 Arrival Date: 05/12/2016 Time: 18:28 Bed D1 Private MD: Diagnosis: Chest pain, unspecified;Abdominal and pelvic pain Presentation: 05/12 18:34 Presenting complaint: Patient states: Left anterior chest pain began at noon today also mlb1 reports diffuse abdominal denies N/V. Aspirin was not taken prior to arrival. Adult Sepsis Screening: The patient does not have new or worsening altered mentation. Patient's respiratory rate is less than 22. Systolic blood pressure is greater than 100. Patient has a qSOFA score of 0- Negative Sepsis Screen. Suicide/Homicide risk assessment- the patient denies having any suicidal and/or homicidal ideations and does not present with any other emotional, behavioral or mental health complaints. Status: Patient is not a escalator service mechanic or dependent. Transition of care: patient was not received from another setting of care. 18:34 Acuity: MARIBELL Level 2 mlb1 18:34 Method Of Arrival: Walkin/Carried/Asstd mlb1 Triage Assessment: 18:40 General: Appears in no apparent distress, Behavior is appropriate for age, cooperative. mlb1 Pain: Location: anterior aspect of left upper chest and abdomen Pain currently is 7 out of 10 on a pain scale. HIV screening NA for this visit Offered previously. Historical: - Allergies: no known allergies; - Home Meds: 1. simvastatin 20 mg Oral tab 1 tab once daily 2. unknown for reflux - PMHx: Hypercholesterolemia; GERD; - PSHx: Hernia repair; H pylori; - Social history: Smoking status: Patient states was never smoker of tobacco. No barriers to communication noted, The patient speaks fluent Romanian, Speaks appropriately for age. - Family history: Not pertinent. - : The pt / caregiver states he / she is not on anticoagulants. Home medication list is obtained from the patient. - Exposure Risk Screening:: None identified. Screenin:45 Screening information is obtained from the patient. Fall risk: No risks identified. kmg1 Assistance ADL's: requires no assistance with activities of daily living. Abuse/DV Screen: The patient / caregiver reports he/she is: not in a situation that causes fear, pain or injury. Nutritional screening: No deficits noted. Advance Directives: There is no active DNR order. home support is adequate. Assessment: 19:15 General: Appears in no apparent distress, uncomfortable, Behavior is appropriate for kmg1 age, cooperative, pleasant. Pain: Location: epigastric area, right upper quadrant and left upper quadrant Pain currently is 6 out of 10 on a pain scale. Quality of pain is described as pressure, sharp. Cardiovascular: Rhythm is sinus bradycardia No ectopy. Chest pain quality is pressure, is located in left anterior. Respiratory: Airway is patent Respiratory effort is even, unlabored, Respiratory pattern is regular, symmetrical. GI: Abdomen is non- distended Reports gaseousness, upper abdominal pain. 19:45 Reassessment: Patient states symptoms have not improved. Provider made aware of kmg1 persistent discomfort. 20:45 General: Appears in no apparent distress, comfortable, Behavior is appropriate for age, kmg1 cooperative, quiet. Pain: Location: left upper quadrant and right upper quadrant and epigastric area Pain currently is 4 out of 10 on a pain scale. Quality of pain is described as pressure. Cardiovascular: Rhythm is sinus bradycardia No ectopy. Respiratory: Airway is patent Respiratory effort is even, unlabored, Respiratory pattern is regular, symmetrical. 21:45 Reassessment: Patient appears in no apparent distress at this time. Patient states kmg1 symptoms have not improved. 22:45 General: Appears in no apparent distress, comfortable, Behavior is appropriate for age, kmg1 cooperative, pleasant, quiet. Respiratory: Airway is patent Respiratory effort is even, unlabored, Respiratory pattern is regular, symmetrical. Vital Signs: 18:30 BP 164 / 76; Pulse 64; Resp 18; Temp 96.7(O); Pulse Ox 100% on R/A; Weight 115.67 kg lr2 (R); Height 5 ft. 10 in. (177.80 cm) (R); Pain 6/10; 18:45 BP 141 / 76 (auto/); kmg1 18:45 Pulse 60 MON; Pulse Ox 97% ; kmg1 19:00 Pulse 60 MON; Pulse Ox 93% ; kmg1 19:15 Pulse 62 MON; Pulse Ox 94% ; kmg1 19:30 Pulse 64 MON; Pulse Ox 90% ; kmg1 19:45 Pulse 56 MON; Pulse Ox 93% ; kmg1 20:40 Pulse 52 MON; Pulse Ox 95% ; cz 20:41 BP 125 / 70 (auto/); cz 20:55 Pulse 48 MON; Pulse Ox 95% ; cz 20:56 BP 114 / 63 (auto/); cz 21:10 Pulse 48 MON; Pulse Ox 93% ; cz 21:11 BP 111 / 63 (auto/); cz 21:25 Pulse 50 MON; Pulse Ox 93% ; cz 21:26 BP 114 / 67 (auto/); cz 21:40 Pulse 54 MON; Pulse Ox 92% ; cz 21:41 BP 115 / 67 (auto/); cz 21:55 Pulse 54 MON; Pulse Ox 93% ; cz 21:56 BP 129 / 67 (auto/); cz 22:10 Pulse 50 MON; Pulse Ox 95% ; cz 22:11 BP 120 / 65 (auto/); cz 22:25 Pulse 48 MON; Pulse Ox 94% ; cz 22:26 BP 125 / 65 (auto/); cz 22:40 Pulse 50 MON; Pulse Ox 93% ; cz 22:41 BP 130 / 68 (auto/); cz 22:55 Pulse 50 MON; Pulse Ox 93% ; cz 22:56 BP 116 / 68 (auto/); cz 23:10 Pulse 48 MON; Pulse Ox 91% ; cz 23:11 BP 117 / 73 (auto/); cz 23:31 BP 113 / 73; Pulse 51; Resp 16; Temp 96(O); cz 18:30 Body Mass Index 36.59 (115.67 kg, 177.80 cm) lr2 Vitals: 18:30 Log In Time: May 12, 2016 at 18:28. lr2 18:33 RN notified that patient meets Red Flag criteria. lr2 ED Course: 18:30 Patient visited by Ramya Leon. lr2 18:30 Patient moved to Waiting lr2 18:32 Patient moved to 5 jrd 18:32 Patient moved to Pre RCE lr2 18:33 Aidee Gottlieb,RN is Primary Nurse. aa3 18:33 Patient moved to 5 lr2 18:34 Patient visited by Chris Lynn, RN. mlb1 18:36 Triage Initiated mlb1 18:40 Patient visited by Chris Lynn, RN. mlb1 18:42 Basic Metabolic Profile Sent. aa3 18:42 CBC with Diff Sent. aa3 18:42 Cardiac Injury Profile Sent. aa3 18:42 Troponin Sent. aa3 18:43 EKG done. (by ED staff). Reviewed by Lucas RAMSEY. jmv 18:44 [facility] ke 18:44 Patient visited by Lucas Gunter FNP. ke 18:44 Patient visited by Lucas Gunter FNP. ke 18:45 Inserted peripheral IV: 20gauge IV in left antecubital area Patient tolerated the aa3 procedure well. Labs drawn. (by ED staff). Sent per order to lab. 18:46 Patient visited by Aidee Gottlieb RN. aa3 18:48 Patient visited by Melvin Montenegro PCA. jmv 18:48 Pt greeted and oriented to ED. Patient advised of names of staff involved in care, [facility] location of call [place], wait times and NPO status. Accompanied by Significant Other, Patient has correct armband on for positive identification. Placed in gown. Bed in low position. Call light in reach. Side rails up X2. securities sales associate on. Pulse ox on. NIBP on. 19:12 Patient visited by Lucas Gunter FNP. ke 19:21 Chest, 1 View Returned. EDMS 19:45 The patient / caregiver is instructed regarding the plan of care and ED course. kmg1 19:45 No procedures done that require assistance. kmg1 19:58 Patient visited by Bree Correa RN. kmg1 20:07 [facility] Payment Agreement was scanned into [employer] and attached to record. zo 20:29 Patient visited by Lucas Gunter FNP. ke 21:02 Patient visited by Lucas Gunter FNP. ke 21:40 Patient visited by Lucas Gunter FNP. ke 21:59 Patient visited by Chey Sena PCA. shasta 21:59 EKG done. (by ED staff). Reviewed by Lucas RAMSEY. shasta 22:22 Patient visited by Lucas Gunter FNP. ke 22:47 Patient visited by Lucas Gunter FNP. ke 23:17 Phillip Wilkerson MD is Referral Physician. ke 23:17 Hakan Neff is Referral Physician. ke 23:32 Patient moved to [facility] 05/13 08:11 EKG-ADULT Returned. EDMS 08:11 EKG-ADULT Returned. EDMS 09:49 T-Sheet-- Draft Copy was scanned into [employer] and attached to record. gb 14:41 ECG/EKG was scanned into [employer] and attached to record. gb Administered Medications: 05/12 19:01 Drug: Aspirin 324 mg [aspirin 81 mg chewable tablet (4 tabs)] Route: PO; kc3 19:02 Drug: GI Cocktail - (Alum-Mag Hydroxide-Simeth Suspension 225 mg-200 mg-25 mg/5 mL 30 kc3 ml, Lidocaine Liquid 2 % 10 ml, Hyoscyamine Liquid 10 ml) Route: PO; 19:25 Drug: Nitrostat 0.4 mg [Nitrostat 0.4 mg sublingual tablet (1 tabs)] Route: Sublingual; kmg1 19:52 Follow up: Response: No significant change. kmg1 20:13 Drug: Famotidine 20 mg [famotidine 10 mg/mL intravenous solution] Route: IVPB; Infused kmg1 Over: 30 mins; Site: left antecubital; 20:45 Follow up: IV Status: Completed infusion; IV Intake: 50ml kmg1 20:14 Not Given (Patient Refused): morphine 2 mg IVP once kmg1 20:47 Drug: ketorolac 30 mg [ketorolac 30 mg/mL (1 mL) injection solution (1 mL)] Route: IVP; kmg1 Site: left antecubital; Intake: 20:45 IV: 50.00ml; Total: 50.00ml. kmg1 Order Results: Lab Order: Basic Metabolic Profile; SPEC'M 05/12/16 18:41 Test: GLUCOSE, FASTING; Value: 110; Range: 70-105; Abnormal: Above high normal; Units: MG/DL; Status: F Test: BLOOD UREA NITROGEN; Value: 18; Range: 7-18; Units: MG/DL; Status: F Test: CREATININE FOR GFR; Value: 1.28; Range: 0.70-1.30; Units: MG/DL; Status: F Test: GLOMERULAR FILTRATION RATE; Value: > 60.0; Range: >56; Status: F Test: SODIUM LEVEL; Value: 142; Range: 136-145; Units: MEQ/L; Status: F Test: POTASSIUM SERUM; Value: 3.8; Range: 3.5-5.1; Units: MEQ/L; Status: F Test: CHLORIDE LEVEL; Value: 103; Range: 98-107; Units: MEQ/L; Status: F Test: CARBON DIOXIDE LEVEL; Value: 31; Range: 21-32; Units: MEQ/L; Status: F Test: ANION GAP; Value: 8; Range: 8-16; Units: MEQ/L; Status: F Test: CALCIUM LEVEL; Value: 9.4; Range: 8.5-10.1; Units: MG/DL; Status: F Test Note: ; Units are mL/min/1.73 m2 Chronic Kidney Disease Staging per NKF: Stage I & II GFR >=60 Normal to Mildly Decreased Stage III GFR 30-59 Moderately Decreased Stage IV GFR 15-29 Severely Decreased Stage V GFR <15 Very Little GFR Left ESRD GFR <15 on DISTRIBUTION ENGINEERING TECHNOLOGIST Lab Order: CBC with Diff; SPEC'M 05/12/16 18:41 Test: WHITE BLOOD COUNT; Value: 9.7; Range: 4.0-10.0; Units: K/mm3; Status: F Test: RED BLOOD COUNT; Value: 5.53; Range: 4.30-6.10; Units: M/mm3; Status: F Test: HEMOGLOBIN; Value: 15.4; Range: 14.0-18.0; Units: g/dl; Status: F Test: HEMATOCRIT; Value: 47.7; Range: 42.0-52.0; Units: %; Status: F Test: MEAN CORPUSCULAR VOLUME; Value: 86.3; Range: 80.0-96.0; Units: fl; Status: F Test: MEAN CORPUSCULAR HEMOGLOBIN; Value: 27.9; Range: 27.0-33.0; Units: pg; Status: F Test: MEAN CORPUSCULAR HGB CONC; Value: 32.3; Range: 32.0-36.5; Units: g/dl; Status: F Test: RED CELL DISTRIBUTION WIDTH; Value: 12.1; Range: 11.5-14.5; Units: %; Status: F Test: PLATELET COUNT, AUTOMATED; Value: 250; Range: 150-450; Units: k/mm3; Status: F Test: NEUTROPHILS %; Value: 53.6; Range: 36.0-66.0; Units: %; Status: F Test: LYMPH %; Value: 35.4; Range: 24.0-44.0; Units: %; Status: F Test: MONO %; Value: 6.0; Range: 0.0-5.0; Abnormal: Above high normal; Units: %; Status: F Test: EOS %; Value: 2.4; Range: 0.0-3.0; Units: %; Status: F Test: BASO %; Value: 0.5; Range: 0.0-1.0; Units: %; Status: F Test: LARGE UNSTAINED CELL %; Value: 2.1; Range: 0.0-4.0; Units: %; Status: F Test: NEUTROPHILS #; Value: 5.2; Range: 1.8-7.7; Units: K/mm3; Status: F Test: LYMPH #; Value: 3.6; Range: 1.5-4.5; Units: K/mm3; Status: F Test: MONO #; Value: 0.6; Range: 0.0-0.8; Units: K/mm3; Status: F Test: EOS #; Value: 0.2; Range: 0.0-0.50; Units: K/mm3; Status: F Test: BASO #; Value: 0.0; Range: 0.0-0.2; Units: K/mm3; Status: F Test: LARGE UNSTAINED CELL #; Value: 0.2; Range: 0.0-0.4; Units: K/mm3; Status: F Lab Order: Cardiac Injury Profile; SPEC' 05/12/16 18:41 Test: CPK CREATINE PHOSPHOKINASE; Value: 229; Range: 39-308; Units: U/L; Status: F Test: CK-MB VALUE MASS; Value: 1.0; Range: 0.0-3.6; Units: NG/ML; Status: F Test: MB/CK RELATIVE INDEX; Value: 0.43; Range: < OR =4; Status: F Test Note: ; DIAGNOSIS CRITERIA MMB ng/ml Relative Index (RI) NON-AMI < or = 5 N/A HAIDER ZONE > 5 < or = 4 AMI > 5 > 4 Lab Order: Troponin; SPEC'M 05/12/16 18:41 Test: TROPONIN I; Value: < 0.02; Range: < 0.10; Units: NG/ML; Status: F Test Note: ; Troponin I Reference Interval for [employer] LOCI: 99th Percentile= 0.00-0.045 ng/ml Risk Stratification: <= 0.10 ng/ml Decreased Risk for Adverse Clinical Events. 0.10-1.50 ng/ml Increased Risk for Adverse Clinical Events. Evaluation of additional criterion and/or repeat testing in 2-6 hours is suggested to rule out myocardial damage. >= 1.50 ng/ml Indicative of Myocardial Injury. Lab Order: LIPASE; [facility]' 05/12/16 18:41 Test: LIPASE; Value: 211; Range: 73-393; Units: U/L; Status: F Lab Order: LIVER PROFILE; [facility] 05/12/16 18:41 Test: AST/SGOT; Value: 18; Range: 15-37; Units: U/L; Status: F Test: ALT/SGPT; Value: 33; Range: 12-78; Units: U/L; Status: F Test: ALKALINE PHOSPHATASE; Value: 100; Range: 45-117; Units: U/L; Status: F Test: BILIRUBIN,TOTAL; Value: 0.4; Range: 0.2-1.0; Units: MG/DL; Status: F Test: BILIRUBIN,DIRECT; Value: 0.1; Range: 0.0-0.2; Units: MG/DL; Status: F Test: TOTAL PROTEIN; Value: 7.5; Range: 6.4-8.2; Units: GM/DL; Status: F Test: ALBUMIN; Value: 4.2; Range: 3.2-5.2; Units: GM/DL; Status: F Test: ALBUMIN/GLOBULIN RATIO; Value: 1.27; Range: 1.00-1.93; Status: F Lab Order: CARDIAC MARKER PANEL; [facility] 05/12/16 22:07 Test: CPK CREATINE PHOSPHOKINASE; Value: 189; Range: 39-308; Units: U/L; Status: F Test: CK-MB VALUE MASS; Value: 1.0; Range: 0.0-3.6; Units: NG/ML; Status: F Test: MB/CK RELATIVE INDEX; Value: 0.52; Range: < OR =4; Status: F Test: TROPONIN I; Value: < 0.02; Range: < 0.10; Units: NG/ML; Status: F Test Note: ; DIAGNOSIS CRITERIA MMB ng/ml Relative Index (RI) NON-AMI < or = 5 N/A HAIDER ZONE > 5 < or = 4 AMI > 5 > 4 Radiology Order: EKG-ADULT Test: EKG-ADULT REASON FOR EXAMINATION: Chest Pain; Stationary ECG Study; [facility] ED; ; Test Date: 2016-05-12; Pat Name: [facility] Department:; Room: -; Gender: M Machine Fancy Stitcher: kitty; : 1960 Requested By: JA Gardner; Order Number: [id number] Reading MD: Jaja Merino; Measurements; Intervals [place]; Rate: 63 P: 47; GA: 162 QRS: 20; QRSD: 113 T: 38; QT: 392; QTc: 402; Interpretive Statements; SINUS RHYTHM; INFERIOR MYOCARDIAL INFARCTION, OF INDETERMINATE AGE; NO PRIOR FOR COMPARISON; Electronically Signed On 05-13-2016 7:51:09 EST by Jaja Merino; Radiology Order: EKG-ADULT Test: EKG-ADULT REASON FOR EXAMINATION: Chest Pain; Stationary ECG Study; [facility]; ; Test Date: 2016-05-12; Pat Name: [facility] Department:; Room: -; Gender: M Machine Fancy Stitcher: jamal; : 1960 Requested By: JA Gardner; Order Number: [id number] Reading MD: Jaja Merino; Measurements; Intervals [place]; Rate: 48 P: 25; GA: 162 QRS: 21; QRSD: 102 T: 41; QT: 424; QTc: 380; Interpretive Statements; SINUS BRADYCARDIA; PROBABLE INFERIOR MYOCARDIAL INFARCTION, OF INDETERMINATE AGE; DECREASED RATE 05/12/16 18:42; Electronically Signed On 05-13-2016 7:52:11 EST by Jaja Merino; Radiology Order: Chest, 1 View Test: Chest, 1 View REASON FOR EXAMINATION: Chest Pain; Clinical: Chest pain .; ; Comparison: 08/22/2003 .; ; Findings:; The mediastinum and cardiac silhouette are stable and within normal limits for; portable technique. The lung contreras are clear without acute consolidation,; effusion, or pneumothorax. Skeletal structures are intact.; ; Impression:; Normal portable chest x-ray; ; ; Signed by; Antoine Vasques MD 05/12/2016 06:56 P; Outcome: 23:18 Discharge ordered by Provider. 23:40 Discharge Assessment: Patient awake, alert and oriented x 3. No cognitive and/or cz functional deficits noted. Patient verbalized understanding of disposition instructions. patient administered narcotics - no. The following High Risk Discharge criteria are identified: None. Discharged to home ambulatory, with significant other. Condition: stable. Discharge instructions given to patient, Instructed on discharge instructions, follow up and referral plans. medication usage, Demonstrated understanding of instructions, medications, Pt was receptive of discharge instructions/ teaching. Prescriptions given X 2. No special radiology studies were completed. Property :Personal belongings accompany Pt. 05/13 01:59 Patient left the ED. [facility] Signatures: Dispatcher [employer] EDNH Bree Correa RN RN kmg1 Olegario Rowell, SHANNON RN Verónica Greene, Reg Reg gb Lucas Gunter, KINESEOLOGIST KINESEOLOGIST Chris Bautista RN RN mlb1 Jef Noel Hannah RN RN hs1 Chey Sena, TABLET REPAIR TABLET REPAIR Aidee Magallon,RN RN aa3 Enrique Hanks, TABLET REPAIR TABLET REPAIR Leatha Grimes,SHANNON RN kc3 Melvin Montenegro, TABLET REPAIR TABLET REPAIR Ramya Hernandez lr2 Corrections: (The following items were deleted from the chart) 05/12 18:49 18:49 LIVER PROFILE+LAB sent. [facility] EDNH 18:49 18:49 LIPASE+LAB sent. [facility] EDMS Chart Complete MTDD
--- NOTE | 2016-05-15 02:59 | EDDOCDS ---
Physician Documentation [facility] Name: Hussein Garcia Age: 55 yrs Sex: Male : 1960 Arrival Date: 05/12/2016 Time: 18:28 Bed D1 Private MD: Disposition: 05/12/16 23:18 Discharged to Home/Self Care. Impression: Chest pain, unspecified, Abdominal and pelvic pain. - Condition is Stable. - Discharge Instructions: Abdominal Pain, Adult, Nonspecific Chest Pain. - Prescriptions for Naprosyn 500 mg Oral Tablet - take 1 tablet by ORAL route 2 times per day take with food; 30 tablet. Aspirin 81 mg - take 1 tablet by ORAL route once daily; 90 tablet. Zofran 4 mg Oral Tablet - take 1 tablet by ORAL route 4 times per day As needed; 10 tablet. - Medication Reconciliation, Local Pharmacy Hours form. - Follow up: Phillip Wilkerson MD; When: Call to arrange an appointment; Reason: Further diagnostic work-up, Continuance of care. Follow up: Hakan Neff; When: Call to arrange an appointment; Reason: Further diagnostic work-up, Continuance of care. - Problem is an acute exacerbation. - Symptoms have improved. Historical: - Allergies: no known allergies; - Home Meds: 1. simvastatin 20 mg Oral tab 1 tab once daily 2. unknown for reflux - PMHx: Hypercholesterolemia; GERD; - PSHx: Hernia repair; H pylori; - Social history: Smoking status: Patient states was never smoker of tobacco. No barriers to communication noted, The patient speaks fluent Wol[place], Speaks appropriately for age. - Family history: Not pertinent. - : The pt / caregiver states he / she is not on anticoagulants. Home medication list is obtained from the patient. - Exposure Risk Screening:: None identified. Vital Signs: 05/12 18:30 BP 164 / 76; Pulse 64; Resp 18; Temp 96.7(O); Pulse Ox 100% on R/A; Weight 115.67 kg / lr2 255.01 lbs (R); Height 5 ft. 10 in. (177.80 cm) (R); Pain 6/10; 18:45 BP 141 / 76 (auto/); kmg1 18:45 Pulse 60 MON; Pulse Ox 97% ; kmg1 19:00 Pulse 60 MON; Pulse Ox 93% ; kmg1 19:15 Pulse 62 MON; Pulse Ox 94% ; kmg1 19:30 Pulse 64 MON; Pulse Ox 90% ; kmg1 19:45 Pulse 56 MON; Pulse Ox 93% ; kmg1 20:40 Pulse 52 MON; Pulse Ox 95% ; cz 20:41 BP 125 / 70 (auto/); cz 20:55 Pulse 48 MON; Pulse Ox 95% ; cz 20:56 BP 114 / 63 (auto/); cz 21:10 Pulse 48 MON; Pulse Ox 93% ; cz 21:11 BP 111 / 63 (auto/); cz 21:25 Pulse 50 MON; Pulse Ox 93% ; cz 21:26 BP 114 / 67 (auto/); cz 21:40 Pulse 54 MON; Pulse Ox 92% ; cz 21:41 BP 115 / 67 (auto/); cz 21:55 Pulse 54 MON; Pulse Ox 93% ; cz 21:56 BP 129 / 67 (auto/); cz 22:10 Pulse 50 MON; Pulse Ox 95% ; cz 22:11 BP 120 / 65 (auto/); cz 22:25 Pulse 48 MON; Pulse Ox 94% ; cz 22:26 BP 125 / 65 (auto/); cz 22:40 Pulse 50 MON; Pulse Ox 93% ; cz 22:41 BP 130 / 68 (auto/); cz 22:55 Pulse 50 MON; Pulse Ox 93% ; cz 22:56 BP 116 / 68 (auto/); cz 23:10 Pulse 48 MON; Pulse Ox 91% ; cz 23:11 BP 117 / 73 (auto/); cz 23:31 BP 113 / 73; Pulse 51; Resp 16; Temp 96(O); cz 18:30 Body Mass Index 36.59 (115.67 kg, 177.80 cm) lr2 MDM: 18:37 Weed Cutter/Pulse Ox/q 30 min VS ordered. br1 18:37 IV Saline Lock ordered. br1 18:37 Rhythm Strip to chart ordered. br1 18:37 Undress patient appropriately for examination ordered. br1 18:38 Basic Metabolic Profile Ordered. EDMS 18:38 CBC with Diff Ordered. EDMS 18:38 Cardiac Injury Profile Ordered. EDMS 18:38 Troponin Ordered. EDMS 18:38 ECG WITH READING ER PHYS+CARDIAG ordered. EDMS 18:38 ECG WITH READING ER PHYS+CARDIAG ordered. EDMS 18:46 GI Cocktail - (Alum-Mag Hydroxide-Simeth 30 ml, Lidocaine 10 ml, Hyoscyamine 10 ml) PO ke once; Pre-mixed 50mL unit dose ordered. 18:46 Aspirin 324 mg PO once ordered. ke 18:47 Chest, 1 View Ordered. EDMS 18:49 LIPASE Ordered. EDMS 18:49 LIVER PROFILE Ordered. EDMS 19:18 Basic Metabolic Profile Reviewed. ke 19:18 CBC with Diff Reviewed. ke 19:18 Cardiac Injury Profile Reviewed. ke 19:18 Troponin Reviewed. ke 19:18 LIPASE Reviewed. ke 19:18 LIVER PROFILE Reviewed. ke 19:19 Nitrostat 0.4 mg Sublingual once ordered. ke 19:44 Repeat EKG (put time details section) ordered. ke 19:44 Redraw CIP &Troponin (put time in details section) ordered. ke 19:50 Repeat EKG (put time details section) complete. tmm1 19:50 Redraw CIP &Troponin (put time in details section) complete. tmm1 19:50 CARDIAC MARKER PANEL Ordered. EDMS 19:51 ECG WITH READING ER PHYS ordered. EDMS 19:59 Famotidine 20 mg IVPB once over 30 mins; dilute in 50mL of NS ordered. ke 19:59 morphine 2 mg IVP once ordered. ke 20:03 Financial registration complete. zo 20:07 [facility] [place] Agreement was scanned into [employer] and attached to record. zo 20:30 ketorolac 30 mg IVP once ordered. ke 23:12 CARDIAC MARKER PANEL Reviewed. ke 23:12 Chest, 1 View Reviewed. ke 05/13 09:49 T-Sheet-- Draft Copy was scanned into [employer] and attached to record. gb 14:41 ECG/EKG was scanned into [employer] and attached to record. gb Administered Medications: 05/12 19:01 Drug: Aspirin 324 mg [aspirin 81 mg chewable tablet (4 tabs)] Route: PO; kc3 19:02 Drug: GI Cocktail - (Alum-Mag Hydroxide-Simeth Suspension 225 mg-200 mg-25 mg/5 mL 30 kc3 ml, Lidocaine Liquid 2 % 10 ml, Hyoscyamine Liquid 10 ml) Route: PO; 19:25 Drug: Nitrostat 0.4 mg [Nitrostat 0.4 mg sublingual tablet (1 tabs)] Route: Sublingual; kmg1 19:52 Follow up: Response: No significant change. kmg1 20:13 Drug: Famotidine 20 mg [famotidine 10 mg/mL intravenous solution] Route: IVPB; Infused kmg1 Over: 30 mins; Site: left antecubital; 20:45 Follow up: IV Status: Completed infusion; IV Intake: 50ml kmg1 20:14 Not Given (Patient Refused): morphine 2 mg IVP once kmg1 20:47 Drug: ketorolac 30 mg [ketorolac 30 mg/mL (1 mL) injection solution (1 mL)] Route: IVP; kmg1 Site: left antecubital; Signatures: Dispatcher [employer] EDMS Bree Correa, RN RN kmg1 Verónica Worthy, Reg Reg Lucas Ramirez, RICE FARMER RICE FARMER Chris Bautista RN RN mlb1 Jef Noel Brian, MD MD br1 McLear, Cammy, CLOTH MENDER CLOTH MENDER tmm1 Leatha Mohamud RN kc3 The chart was reviewed and I authenticate all verbal orders and agree with the evaluation and treatment provided.Corrections: (The following items were deleted from the chart) 18:49 18:47 LIPASE+LAB ordered. EDMS EDMS 18:49 18:47 LIVER PROFILE+LAB ordered. EDMS EDMS Attachments: 20:07 [facility] Payment Agreement zo 05/13 09:49 T-Sheet-- Draft Copy gb 14:41 ECG/EKG gb Chart Complete MTDD
== END 2016-05-13 01:59 | disposition home or self-care (01) ==
LOC: M ED 18:28
DX: R07.89 Other chest pain (principal); R10.9 Unspecified abdominal pain; K21.9 Gastro-esophageal reflux disease without esophagitis; E78.00 Pure hypercholesterolemia, unspecified; Z82.49 Family history of ischemic heart disease and other diseases of the circulatory system; Z79.899 Other long term (current) drug therapy
CPT/HCPCS: 36415; 71010; 80048; 80076; 82550; 82553; 83690; 85025; 93005; 93041; 96365; 96375; 99285; J1885

== ENCOUNTER 2018-03-26 09:35 | Day surgery (SDC) | payer BC ==
[~2018-03-26] VITALS: Ht 182.9 cm; Wt 121.1 kg
[~2018-03-26 09:35] MED LIST: LIDOCAINE 2% INJ 100 MG/5 ML SDV (FOR ANES.) As Ordered ONE; NS 1,000 ML IV ONE; OMEP40CA2 PO; PROPOFOL 200 MG/20 ML VIAL As Ordered ONE; SIMV20TA2 PO
--- NOTE | 2018-03-26 10:53 | ROOR ---
Patient Name: Hussein Garcia Procedure Date: 03/26/2018 10:40 AM Date of : 1960 Age: 57 Room: [facility] Gender: Male Note Status: Finalized Procedure: Upper GI endoscopy Indications: Surveillance for malignancy due to personal history of [place]'s esophagus Providers: Srinath SCHWARTZ MD Referring MD: VIRAJ CUEVAS MD Requesting Provider: Medicines: Monitored Anesthesia Care Complications: No immediate complications. Procedure: Pre-Anesthesia Assessment: - The heart rate, respiratory rate, oxygen saturations, blood pressure, adequacy of pulmonary ventilation, and response to care were monitored throughout the procedure. The Endoscope was introduced through the mouth, and advanced to the second part of duodenum. The upper GI endoscopy was accomplished without difficulty. The patient tolerated the procedure well. Findings: The Z-line was variable and was found 40 cm from the incisors. This was biopsied with a cold forceps for evaluation to rule out [place]'s Esophagus. The exam of the esophagus was otherwise normal. The entire examined stomach was normal. The examined duodenum was normal. Impression: - Z-line variable, 40 cm from the incisors. Biopsied. - Normal stomach. - Normal examined duodenum. Recommendation: - Continue present medications. - Repeat upper endoscopy in 3 - 5 years for surveillance. - Repeat upper endoscopy for surveillance based on pathology results. - Telephone endoscopist for pathology results in 2 weeks. Srinath Schwartz MD Srinath SCHWARTZ MD 03/26/2018 10:52:53 AM This report has been signed electronically. Number of Addenda: 0 Note Initiated On: 03/26/2018 10:40 AM Estimated Blood Loss: Estimated blood loss: none.
--- NOTE | 2018-03-26 11:06 | ROOR ---
Patient Name: Hussein Garcia Procedure Date: 03/26/2018 10:40 AM Date of : 1960 Age: 57 Room: [facility] Gender: Male Note Status: Finalized Procedure: Colonoscopy Indications: High risk colon cancer surveillance: Personal history of colonic polyps, Last colonoscopy: September 2012 Providers: Srinath REA MD Referring MD: VIRAJ CUEVAS MD Requesting Provider: Medicines: Monitored Anesthesia Care Complications: No immediate complications. Procedure: Pre-Anesthesia Assessment: - The heart rate, respiratory rate, oxygen saturations, blood pressure, adequacy of pulmonary ventilation, and response to care were monitored throughout the procedure. The Colonoscope was introduced through the anus and advanced to the cecum, identified by appendiceal orifice and ileocecal valve. The colonoscopy was performed without difficulty. The patient tolerated the procedure well. The quality of the bowel preparation was good. Findings: The perianal and digital rectal examinations were normal. Two sessile polyps were found in the sigmoid colon and ascending colon. The polyps were 4 to 6 mm in size. These polyps were removed with a cold snare. Resection and retrieval were complete. Mild sigmoid diverticulosis and small internal hemorrhoids. The exam was otherwise without abnormality on direct and retroflexion views. Impression: - Two 4 to 6 mm polyps in the sigmoid colon and in the ascending colon, removed with a cold snare. Resected and retrieved. - Mild sigmoid diverticulosis and small internal hemorrhoids. - The examination was otherwise normal on direct and retroflexion views. Recommendation: - Repeat colonoscopy in 5 years for surveillance. Srinath Rea MD Srinath REA MD 03/26/2018 11:06:05 AM This report has been signed electronically. Number of Addenda: 0 Note Initiated On: 03/26/2018 10:40 AM Estimated Blood Loss: Estimated blood loss: none.
[2018-03-26 11:30] VITALS: BP 123/67
== END 2018-03-26 11:50 | disposition home or self-care (01) ==
LOC: M OPP 09:35
PROVIDERS: ATTEND Internal Medicine Gastroenterology
DX: D12.5 Benign neoplasm of sigmoid colon (principal); D12.2 Benign neoplasm of ascending colon; K57.30 Diverticulosis of large intestine without perforation or abscess without bleeding; K64.8 Other hemorrhoids; K22.8 Other specified diseases of esophagus; K22.70 Barrett's esophagus without dysplasia; Z86.010 Personal history of colon polyps

== ENCOUNTER 2023-06-10 09:36 | Day surgery (SDC) | payer BC ==
[~2023-06-10] VITALS: Ht 177.8 cm; Wt 120.3 kg
[~2023-06-10 09:36] MED LIST changes: +LIDOCAINE 2% 100MG/5ML SDV (FOR ANES.) As Ordered ONE; -LIDOCAINE 2% INJ 100 MG/5 ML SDV (FOR ANES.) As Ordered ONE; -NS 1,000 ML IV ONE; -OMEP40CA2 PO; +OMEP40CA4 PO; -PROPOFOL 200 MG/20 ML VIAL As Ordered ONE; -SIMV20TA2 PO; +SIMV20TA22 PO; +propofoL 200 MG/20 ML VIAL As Ordered ONE
[2023-06-10] MEDS ORDERED: fentaNYL 100 MCG/2 ML INJECTION As Ordered ONE (10:32)
[2023-06-10 11:29] VITALS: TEMP 97.7
[2023-06-10 11:52] VITALS: BP 115/62; O2SAT 94
== END 2023-06-10 11:53 | disposition home or self-care (01) ==
LOC: M OPP 09:36
PROVIDERS: ATTEND Internal Medicine Gastroenterology
DX: Z12.11 Encounter for screening for malignant neoplasm of colon (principal); Z86.010 Personal history of colon polyps; D12.4 Benign neoplasm of descending colon; D12.8 Benign neoplasm of rectum; K64.8 Other hemorrhoids; K57.30 Diverticulosis of large intestine without perforation or abscess without bleeding; K31.A19 Gastric intestinal metaplasia without dysplasia, unspecified site; K22.89 Other specified disease of esophagus; Z87.19 Personal history of other diseases of the digestive system; G47.30 Sleep apnea, unspecified; Z99.89 Dependence on other enabling machines and devices; Z79.02 Long term (current) use of antithrombotics/antiplatelets; Z79.899 Other long term (current) drug therapy
CPT/HCPCS: 43239; 45385; 88305; J3010